=== PATIENT | male | born 1935 | race Caucasian/White ===

== ENCOUNTER 2021-11-16 13:43 | Inpatient (IN) ==
[2021-11-16 14:31] LABS: BILIRUBIN,URINE NEGATIVE (NEGATIVE); BLOOD/HEMOGLOBIN,URINE 1+ (NEGATIVE); GLUCOSE, URINE NEGATIVE (NEGATIVE); KETONES,URINE NEGATIVE (NEGATIVE); LEUKOCYTE ESTERASE ,URINE NEGATIVE (NEGATIVE); NITRITES,URINE NEGATIVE (NEGATIVE); PROTEIN,URINE 1+ (NEGATIVE); UROBILINOGEN,URINE NORMAL (NORMAL)
--- NOTE | 2021-11-16 14:37 | RAD ---
HISTORYSEPIS, SIGINFICANT WEAKNESS WITH DECREASED WEIGHT LOSS APPROX 3 WEEKS HEMRROIDECTOMY, APPENDIXSTUDYCHEST, 1 VIEWCOMPARISONNoneFINDINGSTrachea is midlineThere is normal heart size. There is mild elevation of the left diaphragm. There is no evidence of dominant alveolar radiopacity. 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 There is no pneumothorax or pleural effusions.IMPRESSIONFocal emphysematous changes at the right upper lobe and right midlung zone. No dominant alveolar radiopacities.Electronically signed by: Kirsten Medina (Nov 16, 2021 14:36:32)
[2021-11-16 14:44] LABS: APPEARANCE,URINE CLEAR (CLEAR); COLOR,URINE YELLOW (YELLOW)
[2021-11-16 14:45] LABS: BACTERIA,URINE TRACE /HPF (NEGATIVE); SQUAMOUS EPITHELIAL CELL,UR FEW /HPF (NEGATIVE)
[2021-11-16 14:56] LABS: BASOPHILS # (AUTO) 0.1 X10^3/uL (0.0-0.1); EOSINOPHILS # (AUTO) 0.1 x10^3/uL (0.0-0.2); EOSINOPHILS % (AUTO) 1.7 % (0.9-2.9); HEMATOCRIT 36.8 % (42.0-54.0); HEMOGLOBIN 12.7 g/dL (13.5-18.0); LYMPHOCYTES # (AUTO) 0.6 X10^3/uL (1.3-2.9); LYMPHOCYTES % (AUTO) 10.2 % (21.0-51.0); MEAN CORPUSCULAR HEMOGLOBIN 29.3 pg (27.0-34.0); MEAN CORPUSCULAR HGB CONC 34.6 g/dL (33.0-35.0); MEAN CORPUSCULAR VOLUME 84.8 fL (80.0-100.0); MEAN PLATELET VOLUME 6.7 fL (7.4-11.0); MONOCYTES # (AUTO) 0.4 x10^3/uL (0.3-0.8); MONOCYTES % (AUTO) 7.4 % (0.0-13.0); NEUTROPHILS # (AUTO) 4.5 x10^3/uL (2.2-4.8); NEUTROPHILS % (AUTO) 79.7 % (42.0-75.0); RED BLOOD COUNT 4.35 X10^6/uL (4.7-6.0); RED CELL DISTRIBUTION WIDTH 13.6 % (11.6-16.5); WHITE BLOOD COUNT 5.6 X10^3/uL (3.6-10.0)
[2021-11-16 15:13] LABS: CALCIUM 8.5 mg/dL (8.5-10.1); CARBON DIOXIDE 25.1 mmol/L (21-32); CKMB % 1.2 % (<4); COR CA(FOR HYPOALB) 9.3 mg/dL (8.5-10.1); CREATINE KINASE MB 1.5 ng/mL (0-4.0); CREATININE 2.49 mg/dL (0.70-1.30); MAGNESIUM 2.8 mg/dL (1.7-2.9); PHOSPHORUS 3.5 mg/dL (2.6-4.7); TOTAL PROTEIN 6.2 g/dL (6.4-8.2)
--- NOTE | 2021-11-16 15:44 | DR.DIZZY ---
HPI Time seen Time Seen by Provider: 11/16/21 14:17 PCP Primary Care Physician: ZAKI HPI Comment HPI Comment: An 86 y/o male presenting with weakness, poor appetite and weight loss since 3 weeks ago. He was started on outpt. Invanz for a UTI and has taken 6 daily of the planned 10 daily doses. Complaint Chief Complaint:: PATIENTS FAMILY STATES PATIENT HAS BEEN HAVING SIGINFICANT WEAKNESS WITH DECREASED WEIGHT LOSS. APPROX 3 WEEKS AGO PATIENT FELL AND WAS SEEN IN [facility] ED AND WAS DIAGNOSED WITH UTI. PATIENT WAS THEN SET UP WITH HAVING OUTPATIENT INFUSIONS OF INVANZ D/T THE BACTERIA GROWN OUT. PATIENT HAS HAD APPROX 6 DOSES OF MEDICATIONS. PATIENT'S FAMILY STATES PATIENT HAS LOST SO MUCH WEIGHT HE HAS WENT DOWN X2 PANTS SIZES IN 3 WEEKS. FAMILY ALOS STATES HE IS EXTREMELY WEAK. COVID-19 Coronavirus risk:travel/contact w/high risk person: No Has patient experienced Coronavirus symptoms: No Nurses Notes Reviewed Nurses Notes Review: Yes Source History Provided: Patient and Family Member Mode of Arrival Mode of Arrival: Wheelchair Timing Onset of Chief Complaint: 10/26/21 Came on: Gradually Duration Duration: Constant Location of Weakness Weakness Location: Generalized Context Onset: At rest and With light exertion History of: None Stroke Symptoms: None Modifying factors Worsens: Nothing Associated signs and symptoms Associated Signs and Symptoms: Normal PMH PMH Past Medical History: Yes Past Medical History Comment: BLADDER ISSUES Past Surgical History: Yes Surgical History: Appendectomy Past Surgical History Comment: HEMRROIDECTOMY Family History History of Family Medical Conditions: No Social History Does any household member use tobacco: No Alcohol Use: None Do you use any recreational Drugs:: No Lives With: Family Lives Where: Home Travel Risk Coronavirus risk:travel/contact w/high risk person: No Has patient experienced Coronavirus symptoms: No Infectious screening In the last 2 months have you had wt loss of >10#?: YES Have you had fever, night sweats or hemotysis?: No Have you traveled outside the country in the last 6 months?: No Isolation: Droplet ROS Review of Systems Constitutional: Malaise Eyes: No Symptoms Reported ENTM: No Symptoms Reported Respiratoy: No Symptoms Reported Cardiovascular: No Symptoms Reported Gastrointestinal/Abdominal: Other (poor appetite) Genitourinary: No Symptoms Reported Neurological: No Symptoms Reported Musculoskeletal: No Symptoms Reported Integumentary: No Symptoms Reported Hematologic/Lymphatic: No Symptoms Reported Endocrine: No Symptoms Reported Psychiatric: No Symptoms Reported PE Vital Signs Vitals: Temperature 98.0 F Pulse Rate 68 Respiratory Rate 18 Blood Pressure 121/58 O2 Sat by Pulse Oximetry 98 General Limitations: No Limitations General Appearance: Alert and In No Apparent Distress Head Head Exam: Normal Inspection, Atraumatic and Normocephalic Eyes Eye exam: Normal Appearance and EOMI ENT ENT Exam: Normal Exam, Normal Oropharynx, Normal External Ear Exam and Mucous Membranes Moist Neck Neck Exam: Normal Inspection, Full ROM and Trachea Midline Chest Chest Inspection: Normal Inspection and Symmetric Chest Wall Rise Respiratory Respiratory Exam: Normal Lung Sounds Bilat Cardiovascular Cardiovascular Exam: Regular Rate, Normal Rhythm, Normal Heart Sounds, +S1 and +S2 Abdominal Exam Abdominal Exam: Normal Inspection, Normal Bowel Sounds and Soft Rectal Rectal Exam: Deferred Extremeties Extremities Exam: Normal Inspection and Full ROM Back Back Exam: Normal Inspection and Full ROM Neurologic Neurological Exam: Alert Psychiatric Psychiatric Exam: Normal Affect and Normal Mood Skin Skin Exam: Intact COURSE Treatment Treatment: I had discussed hhis presentation and finding with the on-call provider (Dr. CORDOBA) who agrees with the recommendation for in-house placement. Reevaluation 1st: Improved Education/Counseling Education/Counseling: Patient, Family, Education and Counseling Educated On: Treatment, Diagnosis, Prognosis and Needs for Follow Up ROR Labs Reviewed Result Diagrams: 11/16/21 14:29 11/16/21 14:29 Laboratory: WBC 5.6 X10^3/uL (3.6-10.0) 11/16/21 14: RBC 4.35 X10^6/uL (4.7-6.0) L 11/16/21 14:29 Hgb 12.7 g/dL (13.5-18.0) L 11/16/21 14:29 Hct 36.8 % (42.0-54.0) L 11/16/21 14: MCV 84.8 fL (80.0-100.0) 11/16/21 14:29 MCH 29.3 pg (27.0-34.0) 11/16/21 14: MCHC 34.6 g/dL (33.0-35.0) 11/16/21 14: RDW 13.6 % (11.6-16.5) 11/16/21 14:29 Plt Count 334 X10^3/uL (150.0-450.0) 11/16/21 14:29 MPV 6.7 fL (7.4-11.0) L 11/16/21 14:29 Neut % (Auto) 79.7 % (42.0-75.0) H 11/16/21 14:29 Lymph % (Auto) 10.2 % (21.0-51.0) L 11/16/21 14:29 [place] % (Auto) 7.4 % (0.0-13.0) 11/16/21 14:29 Eos % (Auto) 1.7 % (0.9-2.9) 11/16/21 14:29 Baso % (Auto) 1.0 % (0.2-1.0) 11/16/21 14:29 Neut # (Auto) 4.5 x10^3/uL (2.2-4.8) 11/16/21 14:29 Lymph # (Auto) 0.6 X10^3/uL (1.3-2.9) L 11/16/21 14:29 [place] # (Auto) 0.4 x10^3/uL (0.3-0.8) 11/16/21 14:29 Eos # (Auto) 0.1 x10^3/uL (0.0-0.2) 11/16/21 14:29 Baso # (Auto) 0.1 X10^3/uL (0.0-0.1) 11/16/21 14:29 Absolute Nucleated RBC 0.0 /100WBC 11/16/21 14:29 PT 13.7 SECONDS (11.8-14.3) 11/16/21 14:29 INR Target Range - 11/16/21 14:29 INR 1.10 (0.8-1.3) 11/16/21 14:29 APTT 26.5 SECONDS (22.9-36.5) 11/16/21 14:29 PTT Comment - 11/16/21 14:29 Sodium 148 mmol/L (136-145) H 11/16/21 14:29 Corrected Sodium 148 mmol/L (136-145) H 11/16/21 14:29 Potassium 4.6 mmol/L (3.5-5.1) 11/16/21 14:29 Chloride 114 mmol/L (98-107) H 11/16/21 14:29 Carbon Dioxide 25.1 mmol/L (21-32) 11/16/21 14:29 BUN 41 mg/dL (7-18) H 11/16/21 14:29 Creatinine 2.49 mg/dL (0.70-1.30) H 11/16/21 14:29 Est GFR (MDRD) Af Amer 32 (>60) L 11/16/21 14:29 Est GFR (MDRD) Non-Af 26 (>60) L 11/16/21 14:29 Glucose 115 mg/dL (65-99) H 11/16/21 14:29 Lactic Acid 1.0 mmol/L (0.4-2.0) 11/16/21 14:29 Calcium 8.5 mg/dL (8.5-10.1) 11/16/21 14:29 Corrected Calcium 9.3 mg/dL (8.5-10.1) 11/16/21 14:29 Phosphorus 3.5 mg/dL (2.6-4.7) 11/16/21 14:29 Magnesium 2.8 mg/dL (1.7-2.9) 11/16/21 14:29 Total Bilirubin 0.60 mg/dL (0.2-1.0) 11/16/21 14:29 AST 18 Units/L (15-37) 11/16/21 14:29 ALT 11 Units/L (12-78) L 11/16/21 14:29 Alkaline Phosphatase 95 Units/L (46-116) 11/16/21 14:29 Creatine Kinase 124 Units/L (39-308) 11/16/21 14:29 CK-MB (CK-2) 1.5 ng/mL (0-4.0) 11/16/21 14:29 CK/CKMB % Calc 1.2 % (<4) 11/16/21 14:29 Troponin I High Sens 35.6 ng/L (4.0-60.0) 11/16/21 14:29 Total Protein 6.2 g/dL (6.4-8.2) L 11/16/21 14:29 Albumin 3.0 g/dL (3.4-5.0) L 11/16/21 14:29 Globulin 3.2 g/dL (2.5-4.5) 11/16/21 14:29 Albumin/Globulin Ratio 0.9 Ratio (1.1-2.1) L 11/16/21 14:29 Amylase 73 Units/L (25-115) 11/16/21 14:29 Lipase 150 Units/L (73-393) 11/16/21 14:29 Specimen Type Clean catch urine 11/16/21 14:05 Urine Color Yellow (YELLOW) 11/16/21 14:05 Urine Appearance Clear (CLEAR) 11/16/21 14:05 Urine pH 6.0 (5.0 - 8.0) 11/16/21 14:05 Ur Specific [place] 1.020 (1.000-1.030) 11/16/21 14:05 Urine Protein 1+ (NEGATIVE) 11/16/21 14:05 Urine Glucose (UA) Negative (NEGATIVE) 11/16/21 14:05 Urine Ketones Negative (NEGATIVE) 11/16/21 14:05 Urine Occult Blood 1+ (NEGATIVE) 11/16/21 14:05 Urine Nitrite Negative (NEGATIVE) 11/16/21 14:05 Urine Bilirubin Negative (NEGATIVE) 11/16/21 14:05 Urine Urobilinogen Normal (NORMAL) 11/16/21 14:05 Ur Leukocyte Esterase Negative (NEGATIVE) 11/16/21 14:05 Urine RBC 3-5 /HPF (0-3) A 11/16/21 14:05 Urine WBC 0-2 /HPF (0-5) 11/16/21 14:05 Ur Squamous Epith Cells Few /HPF (NEGATIVE) 11/16/21 14:05 Urine Bacteria Trace /HPF (NEGATIVE) 11/16/21 14:05 Ur Culture Indicated? No/not indicated 11/16/21 14:05 SARS CoV-2 RNA Rapid KANA Positive (NEGATIVE) A 11/16/21 18:38 Opioid Opioid Risk Tool Age ([place] box if 16-45): No History of Preadolescent Sexual Abuse: No Total: 0 Total Score Risk Category: Low Risk Copyright: [facility] predicting aberrant behaviors Diagnosis Discharge Problem: Dehydration, Adult failure to thrive, COVID-19 ADDITIONAL NOTES Additional Notes Additional Notes: [id number]: [id number] : 1935Sex: MLocation: ER Order Number(s): [id number](s):CHEST, 1 VIEW Ordering Physician: DIANE RUBIO Primary Care: Nathaniel Rizvi Service Date: 11/16/21 Service Time: 1408 HISTORY SEPIS, SIGINFICANT WEAKNESS WITH DECREASED WEIGHT LOSS APPROX 3 WEEKS HEMRROIDECTOMY, APPENDIX STUDY CHEST, 1 VIEW COMPARISON None FINDINGS Trachea is midline There is normal heart size. There is mild elevation of the left diaphragm. There is no evidence of dominant alveolar radiopacity. 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 There is no pneumothorax or pleural effusions. IMPRESSION Focal emphysematous changes at the right upper lobe and right midlung zone. No dominant alveolar radiopacities. Electronically signed by: Kirsten Medina (Nov 16, 2021 14:36:32) Report Electronically signed: 11/16/21 [id number] CC: Diane Rubio
[2021-11-16] MEDS ORDERED: NS 1/2 1,000 ML IV 1,000 ML IV ONE (17:58)
[2021-11-16] MEDS: NS 1/2 1,000 ML IV 1,000 ML IV SCH (18:04)
[2021-11-16] MEDS ORDERED: ROCEPHIN VIAL 1 GRAM 1 G in NS 100 ML IV + SPIKE MINIBAG* 100 ML IV SCH (19:24)
[2021-11-16] MEDS: BROVANA IN SCH (21:10)
[2021-11-16] MEDS: PULMICORT NEB TX 0.5 MG NEB SCH (21:10)
[2021-11-16] MEDS: ASCORBIC ACID INJ MULTI-DOSE VIAL 1,500 MG in NS 100 ML IV 100 ML IV SCH (22:31)
[2021-11-16] MEDS: LOVENOX INJ 30 MG SYR SC SCH (22:33)
[2021-11-16] MEDS: ZINC SULFATE PO SCH (22:33)
[2021-11-16] MEDS: PEPCID TAB 40 MG PO SCH (22:34)
[2021-11-16] MEDS: VIBRAMYCIN PO SCH (22:34)
[2021-11-16] MEDS: SOLU-Medrol 40 MG VIAL IVP SCH (22:34)
[2021-11-17] MEDS: NS 1/2 1,000 ML IV 1,000 ML IV SCH (02:28)
[2021-11-17] MEDS: ASCORBIC ACID INJ MULTI-DOSE VIAL 1,500 MG in NS 100 ML IV 100 ML IV SCH (02:28)
[2021-11-17] MEDS: SOLU-Medrol 40 MG VIAL IVP SCH ×3 (05:11→21:34)
[2021-11-17] MEDS: MEGACE ORAL SUSP 400 MG/10 ML PO SCH ×2 (06:05→17:20)
[2021-11-17 06:30] LABS: ALBUMIN 2.8 g/dL (3.4-5.0); CALCIUM 8.6 mg/dL (8.5-10.1); CARBON DIOXIDE 19.5 mmol/L (21-32); COR CA(FOR HYPOALB) 9.6 mg/dL (8.5-10.1); CREATININE 2.09 mg/dL (0.70-1.30)
[2021-11-17] MEDS: LOVENOX INJ 30 MG SYR SC SCH ×2 (08:41→21:34)
[2021-11-17] MEDS: ZINC SULFATE PO SCH ×2 (08:42→21:35)
[2021-11-17] MEDS: VIBRAMYCIN PO SCH ×2 (08:42→21:34)
[2021-11-17] MEDS: TRICOR TAB 160 MG PO SCH (08:42)
[2021-11-17] MEDS: ROCEPHIN 1 GRAM IV PREMIX 1 G/50 ML IV.SOLN. IV SCH (08:42)
[2021-11-17] MEDS: VITAMIN C PO SCH ×2 (08:42→21:34)
[2021-11-17] MEDS: PULMICORT NEB TX 0.5 MG NEB SCH ×2 (08:47→21:20)
[2021-11-17] MEDS: BROVANA IN SCH ×2 (08:47→21:20)
[2021-11-17] MEDS ORDERED: D5 1/2 NS 1,000 ML 1,000 ML IV SCH (09:00)
[2021-11-17] MEDS ORDERED: VITAMIN D (1.25MG) PO SCH (09:00)
[2021-11-17] MEDS: FLOMAX PO SCH (11:47)
--- NOTE | 2021-11-17 19:06 | DR.H&P ---
H&P History & Physical for Day of: H&P Date: 11/16/21 Chief Complaint Chief Complaint: Weakness/ Adult Failure to thrive Allergies Allergies Allergy/AdvReac Type Severity Reaction Status Date / Time No Known Drug Allergies Allergy Verified 11/16/21 13:44 History of Present Illness History of Present Illness: This is a 86yo white male with a 3 week history of weakness and not eating well. He was diagnosed 3 weeks ago with a UTI and was being treated with Invanz for a MDR infection. UA is now clear. Workup reveals he has dehydration. He was subsequently admitted for IV hydration. Past Surgical History Surgical History: Appendectomy Family History Family Medical History: Cancer Social History Does patient currently use any type of tobacco product: Yes Have you used tobacco products in the last 12 months: Yes Type of Tobacco Use: Cigars Does any household member use tobacco: No Alcohol Use: None Drug Use: None Medications Home Medications: No Known Drug Allergies Allergy (Verified 11/16/21 13:44) CONTINUE taking the following medications tamsulosin [Flomax] 0.4 mg PO DAILY 11/17/21 [History] Labs Result Diagrams: 11/16/21 14:29 11/17/21 04:41 Labs: Laboratory WBC 5.6 X10^3/uL (3.6-10.0) 11/16/21 14: RBC 4.35 X10^6/uL (4.7-6.0) L 11/16/21 14:29 Hgb 12.7 g/dL (13.5-18.0) L 11/16/21 14: Hct 36.8 % (42.0-54.0) L 11/16/21 14: MCV 84.8 fL (80.0-100.0) 11/16/21 14: MCH 29.3 pg (27.0-34.0) 11/16/21 14: MCHC 34.6 g/dL (33.0-35.0) 11/16/21 14: RDW 13.6 % (11.6-16.5) 11/16/21 14: Plt Count 334 X10^3/uL (150.0-450.0) 11/16/21 14: MPV 6.7 fL (7.4-11.0) L 11/16/21 14:29 Neut % (Auto) 79.7 % (42.0-75.0) H 11/16/21 14: Lymph % (Auto) 10.2 % (21.0-51.0) L 11/16/21 14: [place] % (Auto) 7.4 % (0.0-13.0) 11/16/21 14: Eos % (Auto) 1.7 % (0.9-2.9) 11/16/21 14: Baso % (Auto) 1.0 % (0.2-1.0) 11/16/21 14: Neut # (Auto) 4.5 x10^3/uL (2.2-4.8) 11/16/21 14: Lymph # (Auto) 0.6 X10^3/uL (1.3-2.9) L 11/16/21 14: [place] # (Auto) 0.4 x10^3/uL (0.3-0.8) 11/16/21 14: Eos # (Auto) 0.1 x10^3/uL (0.0-0.2) 11/16/21 14: Baso # (Auto) 0.1 X10^3/uL (0.0-0.1) 11/16/21 14: Absolute Nucleated RBC 0.0 /100WBC 11/16/21 14: PT 13.7 SECONDS (11.8-14.3) 11/16/21 14:29 INR Target Range - 11/16/21 14:29 INR 1.10 (0.8-1.3) 11/16/21 14: APTT 26.5 SECONDS (22.9-36.5) 11/16/21 14:29 PTT Comment - 11/16/21 14:29 Sodium 146 mmol/L (136-145) H 11/17/21 04:41 Corrected Sodium 148 mmol/L (136-145) H 11/17/21 04:41 Potassium 4.3 mmol/L (3.5-5.1) 11/17/21 04:41 Chloride 113 mmol/L (98-107) H 11/17/21 04:41 Carbon Dioxide 19.5 mmol/L (21-32) L 11/17/21 04:41 BUN 38 mg/dL (7-18) H 11/17/21 04:41 Creatinine 2.09 mg/dL (0.70-1.30) H 11/17/21 04:41 Est GFR (MDRD) Af Amer 39 (>60) L 11/17/21 04:41 Est GFR (MDRD) Non-Af 32 (>60) L 11/17/21 04:41 Glucose 164 mg/dL (65-99) H 11/17/21 04:41 Lactic Acid 1.0 mmol/L (0.4-2.0) 11/16/21 14:29 Calcium 8.6 mg/dL (8.5-10.1) 11/17/21 04:41 Corrected Calcium 9.6 mg/dL (8.5-10.1) 11/17/21 04:41 Phosphorus 3.5 mg/dL (2.6-4.7) 11/16/21 14:29 Magnesium 2.8 mg/dL (1.7-2.9) 11/16/21 14:29 Total Bilirubin 0.60 mg/dL (0.2-1.0) 11/17/21 04:41 AST 21 Units/L (15-37) 11/17/21 04:41 ALT 11 Units/L (12-78) L 11/17/21 04:41 Alkaline Phosphatase 97 Units/L (46-116) 11/17/21 04:41 Creatine Kinase 124 Units/L (39-308) 11/16/21 14:29 CK-MB (CK-2) 1.5 ng/mL (0-4.0) 11/16/21 14:29 CK/CKMB % Calc 1.2 % (<4) 11/16/21 14:29 Troponin I High Sens 35.6 ng/L (4.0-60.0) 11/16/21 14:29 Total Protein 6.0 g/dL (6.4-8.2) L 11/17/21 04:41 Albumin 2.8 g/dL (3.4-5.0) L 11/17/21 04:41 Globulin 3.2 g/dL (2.5-4.5) 11/17/21 04:41 Albumin/Globulin Ratio 0.9 Ratio (1.1-2.1) L 11/17/21 04:41 Amylase 73 Units/L (25-115) 11/16/21 14:29 Lipase 150 Units/L (73-393) 11/16/21 14:29 Specimen Type Clean catch urine 11/16/21 14:05 Urine Color Yellow (YELLOW) 11/16/21 14:05 Urine Appearance Clear (CLEAR) 11/16/21 14:05 Urine pH 6.0 (5.0 - 8.0) 11/16/21 14:05 Ur Specific [place] 1.020 (1.000-1.030) 11/16/21 14:05 Urine Protein 1+ (NEGATIVE) 11/16/21 14:05 Urine Glucose (UA) Negative (NEGATIVE) 11/16/21 14:05 Urine Ketones Negative (NEGATIVE) 11/16/21 14:05 Urine Occult Blood 1+ (NEGATIVE) 11/16/21 14:05 Urine Nitrite Negative (NEGATIVE) 11/16/21 14:05 Urine Bilirubin Negative (NEGATIVE) 11/16/21 14:05 Urine Urobilinogen Normal (NORMAL) 11/16/21 14:05 Ur Leukocyte Esterase Negative (NEGATIVE) 11/16/21 14:05 Urine RBC 3-5 /HPF (0-3) A 11/16/21 14:05 Urine WBC 0-2 /HPF (0-5) 11/16/21 14:05 Ur Squamous Epith Cells Few /HPF (NEGATIVE) 11/16/21 14:05 Urine Bacteria Trace /HPF (NEGATIVE) 11/16/21 14:05 Ur Culture Indicated? No/not indicated 11/16/21 14:05 SARS CoV-2 RNA Rapid KANA Positive (NEGATIVE) A 11/16/21 18:38 Review of Systems Constitutional: Weakness Eyes: No Symptoms Reported ENT: No Symptoms Reported Respiratory: No Symptoms Reported Cardiovascular: No Symptoms Reported Gastrointestinal: No Symptoms Reported Genitourinary: No Symptoms Reported Musculoskeletal: No Symptoms Reported Skin: No Symptoms Reported Neurological: Weakness Physical Exam Vital Signs: Temperature 98.0 F Pulse Rate 84 Respiratory Rate 17 Blood Pressure 127/62 O2 Sat by Pulse Oximetry 96 Oriented: Normal Eyes: Normal Ear: Normal Nose: Normal Throat: Normal Respiratory: Clear Throughout Cardiovascular: Normal : Normal Auscultation: Bowel Sounds: Normal Palpation: Normal Tenderness: Normal Skin: Normal Musculoskeletal: Normal Psychiatric: Normal Mood Description: Calm Affect: Normal Speech Pattern: Clear and Appropriate Assessment/Plan (1) Dehydration: Status: Acute Plan: IVF hydration/ recheck CMP in am. (2) Adult failure to thrive: Status: Acute Plan: Monitor for now. Review H&P Reviewed: Yes Patient was examined?: Yes
--- NOTE | 2021-11-17 19:09 | PCM.PROG ---
Progress Note Progress Note for Day of Date of Exam: 11/17/21 Subjective Subjective: Patient is alert this am. Feels a little better since on IVF. Sodium is up at 146. Will change IVF to D51/2NS from NS. Cr is down to 2.09. Will continue IVF and repeat CMP in am. Past Medical Family Social History Past Med/Fam/Surg Hx: No changes since H&P Allergies: Allergies No Known Drug Allergies Allergy (Verified 11/16/21 13:44) Review of Systems ROS: No change since H&P Vital Signs and I&O's Vital Signs: Temperature 98.0 F Pulse Rate 84 Respiratory Rate 17 Blood Pressure 127/62 O2 Sat by Pulse Oximetry 96 Intake and Output: Intake & Output 11/15/21 11/16/21 11/17/21 11/18/21 11:59 11:59 11:59 11:59 Intake Total 1605 / 1605 1208 / 1208 Output Total 375 / 375 100 / 100 Balance 1230 / 1230 1108 / 1108 Physical Exam Oriented: Normal Eyes: Normal Ear: Normal Nose: Normal Throat: Normal Respiratory: Normal Cardiovascular: Normal : Normal Auscultation: Bowel Sounds: Normal Palpation: Normal Tenderness: Normal Skin: Normal Musculoskeletal: Normal Psychiatric: Normal Mood Description: Calm Affect: Normal Speech Pattern: Clear and Appropriate Laboratory and Diagnostics Result Diagrams: 11/16/21 14:29 11/17/21 04:41 Labs: Laboratory WBC 5.6 X10^3/uL (3.6-10.0) 11/16/21 14:29 RBC 4.35 X10^6/uL (4.7-6.0) L 11/16/21 14:29 Hgb 12.7 g/dL (13.5-18.0) L 11/16/21 14:29 Hct 36.8 % (42.0-54.0) L 11/16/21 14:29 MCV 84.8 fL (80.0-100.0) 11/16/21 14:29 MCH 29.3 pg (27.0-34.0) 11/16/21 14: MCHC 34.6 g/dL (33.0-35.0) 11/16/21 14: RDW 13.6 % (11.6-16.5) 11/16/21 14:29 Plt Count 334 X10^3/uL (150.0-450.0) 11/16/21 14:29 MPV 6.7 fL (7.4-11.0) L 11/16/21 14:29 Neut % (Auto) 79.7 % (42.0-75.0) H 11/16/21 14:29 Lymph % (Auto) 10.2 % (21.0-51.0) L 11/16/21 14:29 [place] % (Auto) 7.4 % (0.0-13.0) 11/16/21 14:29 Eos % (Auto) 1.7 % (0.9-2.9) 11/16/21 14:29 Baso % (Auto) 1.0 % (0.2-1.0) 11/16/21 14:29 Neut # (Auto) 4.5 x10^3/uL (2.2-4.8) 11/16/21 14:29 Lymph # (Auto) 0.6 X10^3/uL (1.3-2.9) L 11/16/21 14:29 [place] # (Auto) 0.4 x10^3/uL (0.3-0.8) 11/16/21 14:29 Eos # (Auto) 0.1 x10^3/uL (0.0-0.2) 11/16/21 14:29 Baso # (Auto) 0.1 X10^3/uL (0.0-0.1) 11/16/21 14: Absolute Nucleated RBC 0.0 /100WBC 11/16/21 14:29 PT 13.7 SECONDS (11.8-14.3) 11/16/21 14:29 INR Target Range - 11/16/21 14:29 INR 1.10 (0.8-1.3) 11/16/21 14:29 APTT 26.5 SECONDS (22.9-36.5) 11/16/21 14:29 PTT Comment - 11/16/21 14:29 Sodium 146 mmol/L (136-145) H 11/17/21 04:41 Corrected Sodium 148 mmol/L (136-145) H 11/17/21 04:41 Potassium 4.3 mmol/L (3.5-5.1) 11/17/21 04:41 Chloride 113 mmol/L (98-107) H 11/17/21 04:41 Carbon Dioxide 19.5 mmol/L (21-32) L 11/17/21 04:41 BUN 38 mg/dL (7-18) H 11/17/21 04:41 Creatinine 2.09 mg/dL (0.70-1.30) H 11/17/21 04:41 Est GFR (MDRD) Af Amer 39 (>60) L 11/17/21 04:41 Est GFR (MDRD) Non-Af 32 (>60) L 11/17/21 04:41 Glucose 164 mg/dL (65-99) H 11/17/21 04:41 Lactic Acid 1.0 mmol/L (0.4-2.0) 11/16/21 14:29 Calcium 8.6 mg/dL (8.5-10.1) 11/17/21 04:41 Corrected Calcium 9.6 mg/dL (8.5-10.1) 11/17/21 04:41 Phosphorus 3.5 mg/dL (2.6-4.7) 11/16/21 14:29 Magnesium 2.8 mg/dL (1.7-2.9) 11/16/21 14:29 Total Bilirubin 0.60 mg/dL (0.2-1.0) 11/17/21 04:41 AST 21 Units/L (15-37) 11/17/21 04:41 ALT 11 Units/L (12-78) L 11/17/21 04:41 Alkaline Phosphatase 97 Units/L (46-116) 11/17/21 04:41 Creatine Kinase 124 Units/L (39-308) 11/16/21 14:29 CK-MB (CK-2) 1.5 ng/mL (0-4.0) 11/16/21 14:29 CK/CKMB % Calc 1.2 % (<4) 11/16/21 14:29 Troponin I High Sens 35.6 ng/L (4.0-60.0) 11/16/21 14:29 Total Protein 6.0 g/dL (6.4-8.2) L 11/17/21 04:41 Albumin 2.8 g/dL (3.4-5.0) L 11/17/21 04:41 Globulin 3.2 g/dL (2.5-4.5) 11/17/21 04:41 Albumin/Globulin Ratio 0.9 Ratio (1.1-2.1) L 11/17/21 04:41 Amylase 73 Units/L (25-115) 11/16/21 14:29 Lipase 150 Units/L (73-393) 11/16/21 14:29 Specimen Type Clean catch urine 11/16/21 14:05 Urine Color Yellow (YELLOW) 11/16/21 14:05 Urine Appearance Clear (CLEAR) 11/16/21 14:05 Urine pH 6.0 (5.0 - 8.0) 11/16/21 14:05 Ur Specific [place] 1.020 (1.000-1.030) 11/16/21 14:05 Urine Protein 1+ (NEGATIVE) 11/16/21 14:05 Urine Glucose (UA) Negative (NEGATIVE) 11/16/21 14:05 Urine Ketones Negative (NEGATIVE) 11/16/21 14:05 Urine Occult Blood 1+ (NEGATIVE) 11/16/21 14:05 Urine Nitrite Negative (NEGATIVE) 11/16/21 14:05 Urine Bilirubin Negative (NEGATIVE) 11/16/21 14:05 Urine Urobilinogen Normal (NORMAL) 11/16/21 14:05 Ur Leukocyte Esterase Negative (NEGATIVE) 11/16/21 14:05 Urine RBC 3-5 /HPF (0-3) A 11/16/21 14:05 Urine WBC 0-2 /HPF (0-5) 11/16/21 14:05 Ur Squamous Epith Cells Few /HPF (NEGATIVE) 11/16/21 14:05 Urine Bacteria Trace /HPF (NEGATIVE) 11/16/21 14:05 Ur Culture Indicated? No/not indicated 11/16/21 14:05 SARS CoV-2 RNA Rapid KANA Positive (NEGATIVE) A 11/16/21 18:38 Plan (1) Dehydration: Status: Acute Plan: IVF hydration/ recheck CMP in am. (2) Adult failure to thrive: Status: Acute Plan: Monitor for now.
[2021-11-17] MEDS: COLACE CAP 100 MG PO SCH (21:33)
[2021-11-17] MEDS: PEPCID TAB 40 MG PO SCH (21:35)
[2021-11-18] MEDS: SOLU-Medrol 40 MG VIAL IVP SCH ×3 (05:52→22:16)
[2021-11-18] MEDS: MEGACE ORAL SUSP 400 MG/10 ML PO SCH ×2 (05:52→16:09)
[2021-11-18 05:53] LABS: BASOPHILS % (AUTO) 0.1 % (0.2-1.0); HEMATOCRIT 33.4 % (42.0-54.0); HEMOGLOBIN 11.5 g/dL (13.5-18.0); LYMPHOCYTES # (AUTO) 0.4 X10^3/uL (1.3-2.9); LYMPHOCYTES % (AUTO) 2.8 % (21.0-51.0); MEAN CORPUSCULAR HGB CONC 34.3 g/dL (33.0-35.0); MEAN CORPUSCULAR VOLUME 84.8 fL (80.0-100.0); MEAN PLATELET VOLUME 7.3 fL (7.4-11.0); MONOCYTES # (AUTO) 0.5 x10^3/uL (0.3-0.8); NEUTROPHILS # (AUTO) 14.8 x10^3/uL (2.2-4.8); NEUTROPHILS % (AUTO) 94.1 % (42.0-75.0); RED BLOOD COUNT 3.94 X10^6/uL (4.7-6.0); RED CELL DISTRIBUTION WIDTH 13.4 % (11.6-16.5); WHITE BLOOD COUNT 15.8 X10^3/uL (3.6-10.0)
[2021-11-18 06:01] LABS: ALBUMIN 2.8 g/dL (3.4-5.0); CALCIUM 8.2 mg/dL (8.5-10.1); CARBON DIOXIDE 19.9 mmol/L (21-32); COR CA(FOR HYPOALB) 9.2 mg/dL (8.5-10.1); CREATININE 2.43 mg/dL (0.70-1.30); TOTAL PROTEIN 5.7 g/dL (6.4-8.2)
[2021-11-18 06:58] LABS: BAND NEUTROPHILS % 8 % (0-10); PLATELET MORPHOLOGY COMMENT NORMAL (NORMAL)
[2021-11-18] MEDS: ROCEPHIN 1 GRAM IV PREMIX 1 G/50 ML IV.SOLN. IV SCH (08:19)
[2021-11-18] MEDS: FLOMAX PO SCH (08:19)
[2021-11-18] MEDS: LOVENOX INJ 30 MG SYR SC SCH ×2 (08:19→20:42)
[2021-11-18] MEDS: VITAMIN A PO SCH (08:20)
[2021-11-18] MEDS: VITAMIN C PO SCH ×2 (08:20→20:41)
[2021-11-18] MEDS: VIBRAMYCIN PO SCH (08:20)
[2021-11-18] MEDS: ZINC SULFATE PO SCH ×2 (08:20→20:40)
[2021-11-18] MEDS: TRICOR TAB 160 MG PO SCH (08:20)
[2021-11-18] MEDS ORDERED: INVanz INJ 1 GRAM VIAL 1 G in NS 100 ML IV + SPIKE MINIBAG* 100 ML IV SCH (09:00)
[2021-11-18] MEDS: BROVANA IN SCH ×2 (09:26→21:20)
[2021-11-18] MEDS: PULMICORT NEB TX 0.5 MG NEB SCH ×2 (09:26→21:20)
[2021-11-18] MEDS ORDERED: NS 1/2 1,000 ML IV 1,000 ML IV ONE ×3 (09:50→22:12)
[2021-11-18] MEDS: NS 1/2 1,000 ML IV 1,000 ML IV SCH ×3 (09:53→22:17)
[2021-11-18] MEDS: INVanz INJ 1 GRAM VIAL IVP SCH (09:53)
--- NOTE | 2021-11-18 10:35 | RAD ---
HISTORYCOVID. WEAKNESSSTUDYCHEST x-ray, 1 VIEWCOMPARISONX-ray 11/16/2021FINDINGSThe trachea is midline. The cardiac silhouette is unremarkable .Lungs appear clear. Persistent COPD changes. No pneumothorax or pleural effusion is seen.No acute bony abnormality is seen.IMPRESSIONNo evidence of pneumonia.Electronically signed by: Jason Martinez (Nov 18, 2021 10:35:28)
[2021-11-18] MEDS: NICOTINE PATCH TD SCH (11:18)
[2021-11-18 13:20] LABS: BILIRUBIN,URINE NEGATIVE (NEGATIVE); BLOOD/HEMOGLOBIN,URINE 1+ (NEGATIVE); GLUCOSE, URINE NEGATIVE (NEGATIVE); KETONES,URINE NEGATIVE (NEGATIVE); LEUKOCYTE ESTERASE ,URINE NEGATIVE (NEGATIVE); NITRITES,URINE NEGATIVE (NEGATIVE); PROTEIN,URINE 1+ (NEGATIVE); UROBILINOGEN,URINE NORMAL (NORMAL)
[2021-11-18 13:30] LABS: APPEARANCE,URINE CLEAR (CLEAR); BACTERIA,URINE NEGATIVE /HPF (NEGATIVE); COLOR,URINE YELLOW (YELLOW); SQUAMOUS EPITHELIAL CELL,UR FEW /HPF (NEGATIVE)
--- NOTE | 2021-11-18 19:05 | PCM.PROG ---
Progress Note Progress Note for Day of Date of Exam: 11/18/21 Subjective Subjective: No complaints this am. Cr has increased since yesterday as well as WBC count. 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 I'm increasing his IVF rate to 150 ml/hr. Repeat cmp/cbc in am. Past Medical Family Social History Past Med/Fam/Surg Hx: No changes since H&P Allergies: Allergies No Known Drug Allergies Allergy (Verified 11/16/21 13:44) Review of Systems ROS: No change since H&P Vital Signs and I&O's Vital Signs: Temperature 98.4 F Pulse Rate 86 Respiratory Rate 28 Blood Pressure 160/69 O2 Sat by Pulse Oximetry 94 Intake and Output: Intake & Output 11/16/21 11/17/21 11/18/21 11/19/21 11:59 11:59 11:59 11:59 Intake Total 1605 / 1605 2098 / 2098 1385 / 1385 Output Total 375 / 375 100 / 100 400 / 400 Balance 1230 / 1230 1997 / 1997 985 / 985 Physical Exam Oriented: Normal Eyes: Normal Ear: Normal Nose: Normal Throat: Normal Respiratory: Normal Cardiovascular: Normal : Normal Auscultation: Bowel Sounds: Normal Tenderness: Normal Skin: Normal Musculoskeletal: Normal Psychiatric: Normal Mood Description: Calm Affect: Normal Speech Pattern: Clear and Appropriate Laboratory and Diagnostics Result Diagrams: 11/18/21 05:25 11/18/21 05:25 Labs: 11/16/21 14:35 Blood Blood Culture - Preliminary 11/16/21 14:29 Blood Blood Culture - Preliminary Laboratory WBC 15.8 X10^3/uL (3.6-10.0) H D 11/18/21 05:25 RBC 3.94 X10^6/uL (4.7-6.0) L 11/18/21 05:25 Hgb 11.5 g/dL (13.5-18.0) L 11/18/21 05:25 Hct 33.4 % (42.0-54.0) L 11/18/21 05:25 MCV 84.8 fL (80.0-100.0) 11/18/21 05:25 MCH 29.0 pg (27.0-34.0) 11/18/21 05:25 MCHC 34.3 g/dL (33.0-35.0) 11/18/21 05:25 RDW 13.4 % (11.6-16.5) 11/18/21 05:25 Plt Count 313 X10^3/uL (150.0-450.0) 11/18/21 05:25 Plt Count Comment Adequate (ADEQUATE) 11/18/21 05:25 MPV 7.3 fL (7.4-11.0) L 11/18/21 05:25 Neut % (Auto) 94.1 % (42.0-75.0) H 11/18/21 05:25 Lymph % (Auto) 2.8 % (21.0-51.0) L 11/18/21 05:25 [place] % (Auto) 3.0 % (0.0-13.0) 11/18/21 05:25 Eos % (Auto) 0.0 % (0.9-2.9) L 11/18/21 05:25 Baso % (Auto) 0.1 % (0.2-1.0) L 11/18/21 05:25 Neut # (Auto) 14.8 x10^3/uL (2.2-4.8) H 11/18/21 05:25 Lymph # (Auto) 0.4 X10^3/uL (1.3-2.9) L 11/18/21 05:25 [place] # (Auto) 0.5 x10^3/uL (0.3-0.8) 11/18/21 05:25 Eos # (Auto) 0.0 x10^3/uL (0.0-0.2) 11/18/21 05:25 Baso # (Auto) 0.0 X10^3/uL (0.0-0.1) 11/18/21 05:25 Absolute Nucleated RBC 0.0 /100WBC 11/18/21 05:25 Total Counted 100 11/18/21 05:25 Neutrophils % (Manual) 88 % (39-76) H 11/18/21 05:25 Band Neutrophils % 8 % (0-10) 11/18/21 05:25 Lymphocytes % (Manual) 2 % (13-43) L 11/18/21 05:25 Monocytes % (Manual) 2 % (4-9) L 11/18/21 05:25 Plt Morphology Comment Normal (NORMAL) 11/18/21 05:25 RBC Morphology Normal (NORMAL) 11/18/21 05:25 PT 13.7 SECONDS (11.8-14.3) 11/16/21 14:29 INR Target Range - 11/16/21 14: INR 1.10 (0.8-1.3) 11/16/21 14:29 APTT 26.5 SECONDS (22.9-36.5) 11/16/21 14:29 PTT Comment - 11/16/21 14:29 Sodium 143 mmol/L (136-145) 11/18/21 05:25 Corrected Sodium 144 mmol/L (136-145) 11/18/21 05:25 Potassium 3.7 mmol/L (3.5-5.1) 11/18/21 05:25 Chloride 111 mmol/L (98-107) H 11/18/21 05:25 Carbon Dioxide 19.9 mmol/L (21-32) L 11/18/21 05:25 BUN 43 mg/dL (7-18) H 11/18/21 05:25 Creatinine 2.43 mg/dL (0.70-1.30) H 11/18/21 05:25 Est GFR (MDRD) Af Amer 33 (>60) L 11/18/21 05:25 Est GFR (MDRD) Non-Af 27 (>60) L 11/18/21 05:25 Glucose 147 mg/dL (65-99) H 11/18/21 05:25 Lactic Acid 1.0 mmol/L (0.4-2.0) 11/16/21 14:29 Calcium 8.2 mg/dL (8.5-10.1) L 11/18/21 05:25 Corrected Calcium 9.2 mg/dL (8.5-10.1) 11/18/21 05:25 Phosphorus 3.5 mg/dL (2.6-4.7) 11/16/21 14:29 Magnesium 2.8 mg/dL (1.7-2.9) 11/16/21 14:29 Total Bilirubin 0.60 mg/dL (0.2-1.0) 11/18/21 05:25 AST 22 Units/L (15-37) 11/18/21 05:25 ALT 10 Units/L (12-78) L 11/18/21 05:25 Alkaline Phosphatase 85 Units/L (46-116) 11/18/21 05:25 Creatine Kinase 124 Units/L (39-308) 11/16/21 14:29 CK-MB (CK-2) 1.5 ng/mL (0-4.0) 11/16/21 14:29 CK/CKMB % Calc 1.2 % (<4) 11/16/21 14:29 Troponin I High Sens 35.6 ng/L (4.0-60.0) 11/16/21 14:29 Total Protein 5.7 g/dL (6.4-8.2) L 11/18/21 05:25 Albumin 2.8 g/dL (3.4-5.0) L 11/18/21 05:25 Globulin 2.9 g/dL (2.5-4.5) 11/18/21 05:25 Albumin/Globulin Ratio 1.0 Ratio (1.1-2.1) L 11/18/21 05:25 Amylase 73 Units/L (25-115) 11/16/21 14:29 Lipase 150 Units/L (73-393) 11/16/21 14:29 Specimen Type Clean catch urine 11/18/21 13:00 Urine Color Yellow (YELLOW) 11/18/21 13:00 Urine Appearance Clear (CLEAR) 11/18/21 13:00 Urine pH 5.0 (5.0 - 8.0) 11/18/21 13:00 Ur Specific [place] 1.010 (1.000-1.030) 11/18/21 13:00 Urine Protein 1+ (NEGATIVE) 11/18/21 13:00 Urine Glucose (UA) Negative (NEGATIVE) 11/18/21 13:00 Urine Ketones Negative (NEGATIVE) 11/18/21 13:00 Urine Occult Blood 1+ (NEGATIVE) 11/18/21 13:00 Urine Nitrite Negative (NEGATIVE) 11/18/21 13:00 Urine Bilirubin Negative (NEGATIVE) 11/18/21 13:00 Urine Urobilinogen Normal (NORMAL) 11/18/21 13:00 Ur Leukocyte Esterase Negative (NEGATIVE) 11/18/21 13:00 Urine RBC 3-5 /HPF (0-3) A 11/18/21 13:00 Urine WBC 0-2 /HPF (0-5) 11/18/21 13:00 Ur Squamous Epith Cells Few /HPF (NEGATIVE) 11/18/21 13:00 Urine Bacteria Negative /HPF (NEGATIVE) 11/18/21 13:00 Ur Culture Indicated? No/not indicated 11/18/21 13:00 SARS CoV-2 RNA Rapid KANA Positive (NEGATIVE) A 11/16/21 18:38 Radiology Reviewed: Yes Plan (1) Dehydration: Status: Acute Plan: IVF hydration/ recheck CMP in am. (2) Adult failure to thrive: Status: Acute Plan: Monitor for now.
[2021-11-18] MEDS: COLACE CAP 100 MG PO SCH (20:41)
[2021-11-18] MEDS: PEPCID TAB 40 MG PO SCH (20:41)
[2021-11-18] MEDS ORDERED: RESTORIL CAP 15 MG PO PRN (22:42)
[2021-11-19] MEDS: NS 1/2 1,000 ML IV 1,000 ML IV SCH ×4 (01:12→22:25)
[2021-11-19 04:54] LABS: BASOPHILS % (AUTO) 0.1 % (0.2-1.0); HEMATOCRIT 31.1 % (42.0-54.0); HEMOGLOBIN 10.8 g/dL (13.5-18.0); LYMPHOCYTES # (AUTO) 0.5 X10^3/uL (1.3-2.9); LYMPHOCYTES % (AUTO) 3.7 % (21.0-51.0); MEAN CORPUSCULAR HEMOGLOBIN 29.3 pg (27.0-34.0); MEAN CORPUSCULAR HGB CONC 34.8 g/dL (33.0-35.0); MEAN CORPUSCULAR VOLUME 84.1 fL (80.0-100.0); MEAN PLATELET VOLUME 7.4 fL (7.4-11.0); MONOCYTES # (AUTO) 0.3 x10^3/uL (0.3-0.8); MONOCYTES % (AUTO) 2.1 % (0.0-13.0); NEUTROPHILS # (AUTO) 12.7 x10^3/uL (2.2-4.8); NEUTROPHILS % (AUTO) 94.1 % (42.0-75.0); RED BLOOD COUNT 3.69 X10^6/uL (4.7-6.0); RED CELL DISTRIBUTION WIDTH 13.6 % (11.6-16.5); WHITE BLOOD COUNT 13.5 X10^3/uL (3.6-10.0)
[2021-11-19 05:09] LABS: ALBUMIN 2.8 g/dL (3.4-5.0); CALCIUM 7.9 mg/dL (8.5-10.1); COR CA(FOR HYPOALB) 8.9 mg/dL (8.5-10.1); CREATININE 2.3 mg/dL (0.70-1.30); TOTAL PROTEIN 5.6 g/dL (6.4-8.2)
[2021-11-19 05:12] LABS: BAND NEUTROPHILS % 1 % (0-10); OVALOCYTES SLIGHT; PLATELET MORPHOLOGY COMMENT NORMAL (NORMAL); POIKILOCYTOSIS SLIGHT
--- NOTE | 2021-11-19 05:46 | RAD ---
PROCEDURE: Chest X-ray 1 View .HISTORY: COVID .TECHNIQUE: AP view .COMPARISON: 11/18/2021.TECHNICAL QUALITY: Satisfactory .FINDINGS:Unremarkable cardio mediastinal silhouette and normal central vascularity.No pulmonary consolidation, pleural fluid, masses, or pneumothorax.IMPRESSION:No active cardiopulmonary disease.Electronically signed by: Ajay Whaley (Nov 19, 2021 05:45:47)
[2021-11-19] MEDS: MEGACE ORAL SUSP 400 MG/10 ML PO SCH (05:52)
[2021-11-19] MEDS: SOLU-Medrol 40 MG VIAL IVP SCH (05:52)
[2021-11-19] MEDS ORDERED: NS 1/2 1,000 ML IV 1,000 ML IV ONE ×3 (08:00→22:21)
[2021-11-19] MEDS: FLOMAX PO SCH (08:22)
[2021-11-19] MEDS: LOVENOX INJ 30 MG SYR SC SCH ×2 (08:22→21:16)
[2021-11-19] MEDS: INVanz INJ 1 GRAM VIAL IVP SCH (08:22)
[2021-11-19] MEDS: NICOTINE PATCH TD SCH (08:23)
[2021-11-19] MEDS: ZINC SULFATE PO SCH ×2 (08:24→21:16)
[2021-11-19] MEDS: VITAMIN C PO SCH ×2 (08:24→21:16)
[2021-11-19] MEDS: VITAMIN A PO SCH (08:24)
[2021-11-19] MEDS: BROVANA IN SCH ×2 (08:55→21:20)
[2021-11-19] MEDS: PULMICORT NEB TX 0.5 MG NEB SCH ×2 (08:56→21:20)
[2021-11-19] MEDS ORDERED: LR 1,000 ML IV 1,000 ML IV ONE (11:38)
[2021-11-19] MEDS ORDERED: VALIUM PO PRN (19:41)
[2021-11-19] MEDS: VALIUM INJ IM PRN (20:16)
[2021-11-19] MEDS: COLACE CAP 100 MG PO SCH (21:16)
[2021-11-19] MEDS: PEPCID TAB 40 MG PO SCH (21:16)
[2021-11-20] MEDS: NS 1/2 1,000 ML IV 1,000 ML IV SCH ×4 (02:17→18:00)
[2021-11-20] MEDS: VALIUM INJ IM PRN ×2 (03:15→18:15)
[2021-11-20 05:19] LABS: BASOPHILS % (AUTO) 0.1 % (0.2-1.0); HEMATOCRIT 27.5 % (42.0-54.0); HEMOGLOBIN 9.5 g/dL (13.5-18.0); LYMPHOCYTES # (AUTO) 0.5 X10^3/uL (1.3-2.9); LYMPHOCYTES % (AUTO) 4.3 % (21.0-51.0); MEAN CORPUSCULAR HEMOGLOBIN 29.3 pg (27.0-34.0); MEAN CORPUSCULAR HGB CONC 34.6 g/dL (33.0-35.0); MEAN CORPUSCULAR VOLUME 84.8 fL (80.0-100.0); MEAN PLATELET VOLUME 7.8 fL (7.4-11.0); MONOCYTES # (AUTO) 0.9 x10^3/uL (0.3-0.8); MONOCYTES % (AUTO) 8.3 % (0.0-13.0); NEUTROPHILS # (AUTO) 9.8 x10^3/uL (2.2-4.8); NEUTROPHILS % (AUTO) 87.3 % (42.0-75.0); RED BLOOD COUNT 3.25 X10^6/uL (4.7-6.0); RED CELL DISTRIBUTION WIDTH 13.8 % (11.6-16.5); WHITE BLOOD COUNT 11.3 X10^3/uL (3.6-10.0)
[2021-11-20] MEDS ORDERED: NS 1/2 1,000 ML IV 1,000 ML IV ONE ×3 (05:25→16:53)
[2021-11-20 05:28] LABS: ALANINE AMINOTRANSFERASE 14 Units/L (12-78); ALBUMIN 2.4 g/dL (3.4-5.0); ALKALINE PHOSPHATASE 67 Units/L (46-116); ASPARTATE AMINO TRANSFERASE 33 Units/L (15-37); BLOOD UREA NITROGEN 42 mg/dL (7-18); CALCIUM 7.7 mg/dL (8.5-10.1); CARBON DIOXIDE 22.5 mmol/L (21-32); CREATININE 1.98 mg/dL (0.70-1.30); SODIUM 146 mmol/L (136-145); TOTAL PROTEIN 4.7 g/dL (6.4-8.2); eGFR NON BLACK RACES 34 (>60)
[2021-11-20 05:39] LABS: CHLORIDE 116 mmol/L (98-107)
[2021-11-20] MEDS: FLOMAX PO SCH (08:03)
[2021-11-20] MEDS: ZINC SULFATE PO SCH ×2 (08:04→21:36)
[2021-11-20] MEDS: INVanz INJ 1 GRAM VIAL IVP SCH (08:04)
[2021-11-20] MEDS: NICOTINE PATCH TD SCH (08:04)
[2021-11-20] MEDS: VITAMIN A PO SCH (08:04)
[2021-11-20] MEDS: LOVENOX INJ 30 MG SYR SC SCH ×2 (08:05→21:35)
[2021-11-20] MEDS: VITAMIN C PO SCH ×2 (08:08→21:36)
[2021-11-20] MEDS: BROVANA IN SCH ×2 (08:40→21:11)
[2021-11-20] MEDS: PULMICORT NEB TX 0.5 MG NEB SCH ×2 (08:40→21:10)
[2021-11-20] MEDS: COLACE CAP 100 MG PO SCH (21:35)
[2021-11-20] MEDS: PEPCID TAB 40 MG PO SCH (21:36)
[2021-11-21] MEDS ORDERED: NS 1/2 1,000 ML IV 1,000 ML IV ONE ×3 (01:11→16:18)
[2021-11-21] MEDS: NS 1/2 1,000 ML IV 1,000 ML IV SCH ×3 (01:32→16:16)
[2021-11-21 05:22] LABS: BASOPHILS % (AUTO) 0.5 % (0.2-1.0); EOSINOPHILS % (AUTO) 0.3 % (0.9-2.9); HEMATOCRIT 28.4 % (42.0-54.0); HEMOGLOBIN 9.9 g/dL (13.5-18.0); LYMPHOCYTES # (AUTO) 0.5 X10^3/uL (1.3-2.9); LYMPHOCYTES % (AUTO) 9.2 % (21.0-51.0); MEAN CORPUSCULAR HEMOGLOBIN 29.4 pg (27.0-34.0); MEAN CORPUSCULAR HGB CONC 34.8 g/dL (33.0-35.0); MEAN CORPUSCULAR VOLUME 84.4 fL (80.0-100.0); MEAN PLATELET VOLUME 7.2 fL (7.4-11.0); MONOCYTES # (AUTO) 0.5 x10^3/uL (0.3-0.8); NEUTROPHILS # (AUTO) 4.7 x10^3/uL (2.2-4.8); RED BLOOD COUNT 3.36 X10^6/uL (4.7-6.0); RED CELL DISTRIBUTION WIDTH 13.8 % (11.6-16.5); WHITE BLOOD COUNT 5.8 X10^3/uL (3.6-10.0)
[2021-11-21 05:36] LABS: ALANINE AMINOTRANSFERASE 14 Units/L (12-78); ALBUMIN 2.3 g/dL (3.4-5.0); ALKALINE PHOSPHATASE 63 Units/L (46-116); ASPARTATE AMINO TRANSFERASE 28 Units/L (15-37); BLOOD UREA NITROGEN 41 mg/dL (7-18); CALCIUM 7.2 mg/dL (8.5-10.1); CARBON DIOXIDE 19.3 mmol/L (21-32); CHLORIDE 114 mmol/L (98-107); COR CA(FOR HYPOALB) 8.6 mg/dL (8.5-10.1); CREATININE 1.85 mg/dL (0.70-1.30); SODIUM 143 mmol/L (136-145); TOTAL PROTEIN 4.5 g/dL (6.4-8.2); eGFR NON BLACK RACES 37 (>60)
[2021-11-21 06:03] LABS: PLATELET MORPHOLOGY COMMENT NORMAL (NORMAL)
[2021-11-21] MEDS: BROVANA IN SCH ×2 (08:00→20:21)
[2021-11-21] MEDS: PULMICORT NEB TX 0.5 MG NEB SCH ×2 (08:00→20:21)
--- NOTE | 2021-11-21 08:33 | PCM.PROG ---
Progress Note Progress Note for Day of Date of Exam: 11/21/21 Subjective Subjective: No complaints this am. Cr has improved as well as WBC count. 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 I spoke with patients family this am. He has been living with them. They report that they are unable to care for him now since he is non-ambulatory for 4 weeks now. They wish to place in the [facility] for a permanent placement. I spoke with case management and they will start working on placement there. Will continue IVF and Invanz. Past Medical Family Social History Past Med/Fam/Surg Hx: No changes since H&P Allergies: Allergies No Known Drug Allergies Allergy (Verified 11/16/21 13:44) Review of Systems ROS: No change since H&P Vital Signs and I&O's Vital Signs: Temperature 97.5 F Pulse Rate 60 Respiratory Rate 22 Blood Pressure 156/70 O2 Sat by Pulse Oximetry 100 Intake and Output: Intake & Output 11/18/21 11/19/21 11/20/21 11/21/21 11:59 11:59 11:59 11:59 Intake Total 2098 / 2098 3608 / 3608 4643 / 4643 3897 / 3897 Output Total 100 / 100 700 / 700 200 / 200 950 / 950 Balance 1997 2908 / 2908 4443 / 4443 2947 / 2947 Physical Exam Oriented: Normal Eyes: Normal Ear: Normal Nose: Normal Throat: Normal Respiratory: Normal Cardiovascular: Normal : Normal Auscultation: Bowel Sounds: Normal Tenderness: Normal Skin: Normal Musculoskeletal: Normal Psychiatric: Normal Mood Description: Calm Affect: Normal Speech Pattern: Clear and Appropriate Laboratory and Diagnostics Result Diagrams: 11/21/21 04:19 11/21/21 04:19 Labs: 11/18/21 13:00 Urine,Clean Catch Urine Culture - Preliminary 11/16/21 14:35 Blood Blood Culture - Preliminary 11/16/21 14:29 Blood Blood Culture - Preliminary Laboratory WBC 5.8 X10^3/uL (3.6-10.0) 11/21/21 04:19 RBC 3.36 X10^6/uL (4.7-6.0) L 11/21/21 04:19 Hgb 9.9 g/dL (13.5-18.0) L 11/21/21 04:19 Hct 28.4 % (42.0-54.0) L 11/21/21 04:19 MCV 84.4 fL (80.0-100.0) 11/21/21 04:19 MCH 29.4 pg (27.0-34.0) 11/21/21 04:19 MCHC 34.8 g/dL (33.0-35.0) 11/21/21 04:19 RDW 13.8 % (11.6-16.5) 11/21/21 04:19 Plt Count 61 X10^3/uL (150.0-450.0) L 11/21/21 04:19 Plt Count Comment Decreased (ADEQUATE) 11/21/21 04:19 MPV 7.2 fL (7.4-11.0) L 11/21/21 04:19 Neut % (Auto) 81.0 % (42.0-75.0) H 11/21/21 04:19 Lymph % (Auto) 9.2 % (21.0-51.0) L 11/21/21 04:19 [place] % (Auto) 9.0 % (0.0-13.0) 11/21/21 04:19 Eos % (Auto) 0.3 % (0.9-2.9) L 11/21/21 04:19 Baso % (Auto) 0.5 % (0.2-1.0) 11/21/21 04:19 Neut # (Auto) 4.7 x10^3/uL (2.2-4.8) 11/21/21 04:19 Lymph # (Auto) 0.5 X10^3/uL (1.3-2.9) L 11/21/21 04:19 [place] # (Auto) 0.5 x10^3/uL (0.3-0.8) 11/21/21 04:19 Eos # (Auto) 0.0 x10^3/uL (0.0-0.2) 11/21/21 04:19 Baso # (Auto) 0.0 X10^3/uL (0.0-0.1) 11/21/21 04:19 Absolute Nucleated RBC 0.0 /100WBC 11/21/21 04:19 Total Counted 100 11/21/21 04:19 Neutrophils % (Manual) 84 % (39-76) H 11/21/21 04:19 Band Neutrophils % 1 % (0-10) 11/19/21 04:05 Lymphocytes % (Manual) 11 % (13-43) L 11/21/21 04:19 Monocytes % (Manual) 5 % (4-9) 11/21/21 04:19 Plt Morphology Comment Normal (NORMAL) 11/21/21 04:19 RBC Morphology Normal (NORMAL) 11/21/21 04:19 Poikilocytosis Slight A 11/19/21 04:05 Ovalocytes Slight A 11/19/21 04:05 Acanthocytes (Spur) Present 11/19/21 04:05 PT 13.7 SECONDS (11.8-14.3) 11/16/21 14:29 INR Target Range - 11/16/21 14:29 INR 1.10 (0.8-1.3) 11/16/21 14:29 APTT 26.5 SECONDS (22.9-36.5) 11/16/21 14:29 PTT Comment - 11/16/21 14:29 Sodium 143 mmol/L (136-145) 11/21/21 04:19 Corrected Sodium TNP 11/21/21 04:19 Potassium 3.7 mmol/L (3.5-5.1) 11/21/21 04:19 Chloride 114 mmol/L (98-107) H 11/21/21 04:19 Carbon Dioxide 19.3 mmol/L (21-32) L 11/21/21 04:19 BUN 41 mg/dL (7-18) H 11/21/21 04:19 Creatinine 1.85 mg/dL (0.70-1.30) H 11/21/21 04:19 Est GFR (MDRD) Af Amer 45 (>60) L 11/21/21 04:19 Est GFR (MDRD) Non-Af 37 (>60) L 11/21/21 04:19 Glucose 76 mg/dL (65-99) 11/21/21 04:19 Lactic Acid 1.0 mmol/L (0.4-2.0) 11/16/21 14:29 Calcium 7.2 mg/dL (8.5-10.1) L 11/21/21 04:19 Corrected Calcium 8.6 mg/dL (8.5-10.1) 11/21/21 04:19 Phosphorus 3.5 mg/dL (2.6-4.7) 11/16/21 14:29 Magnesium 2.8 mg/dL (1.7-2.9) 11/16/21 14:29 Total Bilirubin 0.60 mg/dL (0.2-1.0) 11/21/21 04:19 AST 28 Units/L (15-37) 11/21/21 04:19 ALT 14 Units/L (12-78) 11/21/21 04:19 Alkaline Phosphatase 63 Units/L (46-116) 11/21/21 04:19 Creatine Kinase 124 Units/L (39-308) 11/16/21 14:29 CK-MB (CK-2) 1.5 ng/mL (0-4.0) 11/16/21 14: CK/CKMB % Calc 1.2 % (<4) 11/16/21 14:29 Troponin I High Sens 35.6 ng/L (4.0-60.0) 11/16/21 14:29 Total Protein 4.5 g/dL (6.4-8.2) L 11/21/21 04:19 Albumin 2.3 g/dL (3.4-5.0) L 11/21/21 04:19 Globulin 2.2 g/dL (2.5-4.5) L 11/21/21 04:19 Albumin/Globulin Ratio 1.0 Ratio (1.1-2.1) L 11/21/21 04:19 Amylase 73 Units/L (25-115) 11/16/21 14:29 Lipase 150 Units/L (73-393) 11/16/21 14:29 Specimen Type Clean catch urine 11/18/21 13:00 Urine Color Yellow (YELLOW) 11/18/21 13:00 Urine Appearance Clear (CLEAR) 11/18/21 13:00 Urine pH 5.0 (5.0 - 8.0) 11/18/21 13:00 Ur Specific [place] 1.010 (1.000-1.030) 11/18/21 13:00 Urine Protein 1+ (NEGATIVE) 11/18/21 13:00 Urine Glucose (UA) Negative (NEGATIVE) 11/18/21 13:00 Urine Ketones Negative (NEGATIVE) 11/18/21 13:00 Urine Occult Blood 1+ (NEGATIVE) 11/18/21 13:00 Urine Nitrite Negative (NEGATIVE) 11/18/21 13:00 Urine Bilirubin Negative (NEGATIVE) 11/18/21 13:00 Urine Urobilinogen Normal (NORMAL) 11/18/21 13:00 Ur Leukocyte Esterase Negative (NEGATIVE) 11/18/21 13:00 Urine RBC 3-5 /HPF (0-3) A 11/18/21 13:00 Urine WBC 0-2 /HPF (0-5) 11/18/21 13:00 Ur Squamous Epith Cells Few /HPF (NEGATIVE) 11/18/21 13:00 Urine Bacteria Negative /HPF (NEGATIVE) 11/18/21 13:00 Ur Culture Indicated? No/not indicated 11/18/21 13:00 SARS CoV-2 RNA Rapid KANA Positive (NEGATIVE) A 11/16/21 18:38 Plan (1) Dehydration: Status: Acute Plan: Decrease IVF to KVO (2) Adult failure to thrive: Status: Acute Plan: Start working on NH placement in [place], [place] (3) CKD (chronic kidney disease): Status: Acute Plan: Changing IVF to KVO
[2021-11-21] MEDS: FLOMAX PO SCH (09:03)
[2021-11-21] MEDS: NICOTINE PATCH TD SCH (09:04)
[2021-11-21] MEDS: VITAMIN C PO SCH ×2 (09:04→20:04)
[2021-11-21] MEDS: VITAMIN A PO SCH (09:04)
[2021-11-21] MEDS: ZINC SULFATE PO SCH ×2 (09:04→20:04)
[2021-11-21] MEDS: INVanz INJ 1 GRAM VIAL IVP SCH (09:04)
[2021-11-21] MEDS: VALIUM INJ IM PRN (20:04)
[2021-11-21] MEDS: COLACE CAP 100 MG PO SCH (20:04)
[2021-11-21] MEDS ORDERED: PEPCID TAB 20 MG PO SCH (21:00)
[2021-11-22 06:00] LABS: BASOPHILS % (AUTO) 0.3 % (0.2-1.0); EOSINOPHILS # (AUTO) 0.1 x10^3/uL (0.0-0.2); EOSINOPHILS % (AUTO) 1.5 % (0.9-2.9); HEMATOCRIT 27.6 % (42.0-54.0); HEMOGLOBIN 9.7 g/dL (13.5-18.0); LYMPHOCYTES # (AUTO) 0.6 X10^3/uL (1.3-2.9); LYMPHOCYTES % (AUTO) 9.3 % (21.0-51.0); MEAN CORPUSCULAR HEMOGLOBIN 29.9 pg (27.0-34.0); MEAN CORPUSCULAR HGB CONC 35.2 g/dL (33.0-35.0); MEAN CORPUSCULAR VOLUME 84.9 fL (80.0-100.0); MEAN PLATELET VOLUME 7.5 fL (7.4-11.0); MONOCYTES # (AUTO) 0.7 x10^3/uL (0.3-0.8); MONOCYTES % (AUTO) 10.6 % (0.0-13.0); NEUTROPHILS # (AUTO) 5.5 x10^3/uL (2.2-4.8); NEUTROPHILS % (AUTO) 78.3 % (42.0-75.0); RED BLOOD COUNT 3.25 X10^6/uL (4.7-6.0); RED CELL DISTRIBUTION WIDTH 14.1 % (11.6-16.5)
[2021-11-22 06:11] LABS: CALCIUM 7.5 mg/dL (8.5-10.1); CARBON DIOXIDE 20.8 mmol/L (21-32); COR CA(FOR HYPOALB) 9.1 mg/dL (8.5-10.1); CREATININE 2.01 mg/dL (0.70-1.30); TOTAL PROTEIN 4.3 g/dL (6.4-8.2)
[2021-11-22] MEDS: NS 1/2 1,000 ML IV 1,000 ML IV SCH ×2 (07:10→09:39)
[2021-11-22 07:54] VITALS: BMI 25.8
[2021-11-22] MEDS: BROVANA IN SCH (08:28)
[2021-11-22] MEDS: PULMICORT NEB TX 0.5 MG NEB SCH (08:28)
[2021-11-22] MEDS: INVanz INJ 1 GRAM VIAL IVP SCH (09:38)
[2021-11-22] MEDS: FLOMAX PO SCH (09:38)
[2021-11-22] MEDS: NICOTINE PATCH TD SCH (09:38)
[2021-11-22] MEDS: VITAMIN A PO SCH (09:39)
[2021-11-22] MEDS: VITAMIN C PO SCH (09:39)
[2021-11-22] MEDS: ZINC SULFATE PO SCH (09:39)
[2021-11-22 12:14] VITALS: BP 127/58
--- NOTE | 2021-12-14 14:18 | PCM.DCPLAN ---
DISCHARGE SUMMARY Admission Date Date of Admission: 11/16/21 Discharge Date Discharge Date: 11/22/21 Admission Diagnoses (1) Dehydration: Status: Acute (2) Adult failure to thrive: Status: Acute (3) CKD (chronic kidney disease): Status: Acute Discharge Diagnoses Discharge Diagnosis: 1. Adult Failure To Thrive 2. Dehydration 3. CKD Discharge Medications Discharge Medications: Home Medication List tamsulosin [Flomax] 0.4 mg PO DAILY 11/17/21 [History] budesonide [Pulmicort] 0.5 mg INHALATION BID #1 ml 11/22/21 [Rx] docusate sodium [Colace] 100 mg PO HS #30 cap 11/22/21 [Rx] famotidine [Pepcid] 20 mg PO QHS #30 tab 11/22/21 [Rx] metoprolol teran-hydrochlorothiaz 1 tab PO DAILY #30 tab 11/22/21 [Rx] tamsulosin [Flomax] 0.4 mg PO DAILY #30 cap 11/22/21 [Rx] Prescriptions: budesonide [Pulmicort] CRISTINA CORDOBA docusate sodium [Colace] ADALID,CRISTINA famotidine [Pepcid] CRISTINA CORDOBA metoprolol teran-hydrochlorothiaz ADALID,CRISTINA tamsulosin [Flomax] ADALID,CRISTINA Hospital Course Vital Signs: Temperature 97.9 F Pulse Rate 82 Respiratory Rate 17 Blood Pressure 127/58 O2 Sat by Pulse Oximetry 100 Latest Lab Results: Laboratory Last Values WBC 7.0 X10^3/uL (3.6-10.0) 11/22/21 05:32 RBC 3.25 X10^6/uL (4.7-6.0) L 11/22/21 05:32 Hgb 9.7 g/dL (13.5-18.0) L 11/22/21 05:32 Hct 27.6 % (42.0-54.0) L 11/22/21 05:32 MCV 84.9 fL (80.0-100.0) 11/22/21 05:32 MCH 29.9 pg (27.0-34.0) 11/22/21 05:32 MCHC 35.2 g/dL (33.0-35.0) H 11/22/21 05:32 RDW 14.1 % (11.6-16.5) 11/22/21 05:32 Plt Count 184 X10^3/uL (150.0-450.0) 11/22/21 05:32 Plt Count Comment Decreased (ADEQUATE) 11/21/21 04:19 MPV 7.5 fL (7.4-11.0) 11/22/21 05:32 Neut % (Auto) 78.3 % (42.0-75.0) H 11/22/21 05:32 Lymph % (Auto) 9.3 % (21.0-51.0) L 11/22/21 05:32 [place] % (Auto) 10.6 % (0.0-13.0) 11/22/21 05:32 Eos % (Auto) 1.5 % (0.9-2.9) 11/22/21 05:32 Baso % (Auto) 0.3 % (0.2-1.0) 11/22/21 05:32 Neut # (Auto) 5.5 x10^3/uL (2.2-4.8) H 11/22/21 05:32 Lymph # (Auto) 0.6 X10^3/uL (1.3-2.9) L 11/22/21 05:32 [place] # (Auto) 0.7 x10^3/uL (0.3-0.8) 11/22/21 05:32 Eos # (Auto) 0.1 x10^3/uL (0.0-0.2) 11/22/21 05:32 Baso # (Auto) 0.0 X10^3/uL (0.0-0.1) 11/22/21 05:32 Absolute Nucleated RBC 0.0 /100WBC 11/22/21 05:32 Total Counted 100 11/21/21 04:19 Neutrophils % (Manual) 84 % (39-76) H 11/21/21 04:19 Band Neutrophils % 1 % (0-10) 11/19/21 04:05 Lymphocytes % (Manual) 11 % (13-43) L 11/21/21 04:19 Monocytes % (Manual) 5 % (4-9) 11/21/21 04:19 Plt Morphology Comment Normal (NORMAL) 11/21/21 04:19 RBC Morphology Normal (NORMAL) 11/21/21 04:19 Poikilocytosis Slight A 11/19/21 04:05 Ovalocytes Slight A 11/19/21 04:05 Acanthocytes (Spur) Present 11/19/21 04:05 PT 13.7 SECONDS (11.8-14.3) 11/16/21 14:29 INR Target Range - 11/16/21 14: INR 1.10 (0.8-1.3) 11/16/21 14:29 APTT 26.5 SECONDS (22.9-36.5) 11/16/21 14:29 PTT Comment - 11/16/21 14:29 Sodium 142 mmol/L (136-145) 11/22/21 05:32 Corrected Sodium 142 mmol/L (136-145) 11/22/21 05:32 Potassium 3.6 mmol/L (3.5-5.1) 11/22/21 05:32 Chloride 114 mmol/L (98-107) H 11/22/21 05:32 Carbon Dioxide 20.8 mmol/L (21-32) L 11/22/21 05:32 BUN 38 mg/dL (7-18) H 11/22/21 05:32 Creatinine 2.01 mg/dL (0.70-1.30) H 11/22/21 05:32 Est GFR (MDRD) Af Amer 41 (>60) L 11/22/21 05:32 Est GFR (MDRD) Non-Af 34 (>60) L 11/22/21 05:32 Glucose 115 mg/dL (65-99) H 11/22/21 05:32 Lactic Acid 1.0 mmol/L (0.4-2.0) 11/16/21 14:29 Calcium 7.5 mg/dL (8.5-10.1) L 11/22/21 05:32 Corrected Calcium 9.1 mg/dL (8.5-10.1) 11/22/21 05:32 Phosphorus 3.5 mg/dL (2.6-4.7) 11/16/21 14:29 Magnesium 2.8 mg/dL (1.7-2.9) 11/16/21 14:29 Total Bilirubin 0.50 mg/dL (0.2-1.0) 11/22/21 05:32 AST 17 Units/L (15-37) 11/22/21 05:32 ALT 12 Units/L (12-78) 11/22/21 05:32 Alkaline Phosphatase 59 Units/L (46-116) 11/22/21 05:32 Creatine Kinase 124 Units/L (39-308) 11/16/21 14:29 CK-MB (CK-2) 1.5 ng/mL (0-4.0) 11/16/21 14:29 CK/CKMB % Calc 1.2 % (<4) 11/16/21 14:29 Troponin I High Sens 35.6 ng/L (4.0-60.0) 11/16/21 14:29 Total Protein 4.3 g/dL (6.4-8.2) L 11/22/21 05:32 Albumin 2.0 g/dL (3.4-5.0) L 11/22/21 05:32 Globulin 2.3 g/dL (2.5-4.5) L 11/22/21 05:32 Albumin/Globulin Ratio 0.9 Ratio (1.1-2.1) L 11/22/21 05:32 Amylase 73 Units/L (25-115) 11/16/21 14:29 Lipase 150 Units/L (73-393) 11/16/21 14:29 Specimen Type Clean catch urine 11/18/21 13:00 Urine Color Yellow (YELLOW) 11/18/21 13:00 Urine Appearance Clear (CLEAR) 11/18/21 13:00 Urine pH 5.0 (5.0 - 8.0) 11/18/21 13:00 Ur Specific [place] 1.010 (1.000-1.030) 11/18/21 13:00 Urine Protein 1+ (NEGATIVE) 11/18/21 13:00 Urine Glucose (UA) Negative (NEGATIVE) 11/18/21 13:00 Urine Ketones Negative (NEGATIVE) 11/18/21 13:00 Urine Occult Blood 1+ (NEGATIVE) 11/18/21 13:00 Urine Nitrite Negative (NEGATIVE) 11/18/21 13:00 Urine Bilirubin Negative (NEGATIVE) 11/18/21 13:00 Urine Urobilinogen Normal (NORMAL) 11/18/21 13:00 Ur Leukocyte Esterase Negative (NEGATIVE) 11/18/21 13:00 Urine RBC 3-5 /HPF (0-3) A 11/18/21 13:00 Urine WBC 0-2 /HPF (0-5) 11/18/21 13:00 Ur Squamous Epith Cells Few /HPF (NEGATIVE) 11/18/21 13:00 Urine Bacteria Negative /HPF (NEGATIVE) 11/18/21 13:00 Ur Culture Indicated? No/not indicated 11/18/21 13:00 SARS CoV-2 RNA Rapid KANA Positive (NEGATIVE) A 11/16/21 18:38 Hospital Course: This is a pleasant 86 year old white male who admitted for a three-week history of adult failure to thrive. He reports increase weakness and not eating well for the last 3 weeks. 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 Work appear in the [facility] Emergency Department reveals he has dehydration. A urinalysis was done which does not currently shows a urinary tract infection. At this time I did not elect to restart his IV Invanz. over the next two days is hydration status improved and his creatinine is coming down. He had developed over these next two days and increase white blood cell count. Because of this I restarted his IV Invanz. I discussed this case with his family who he had been staying with. They reported that they were not currently able to help take care of for him anymore since he is having so much trouble walking. They feel it would be in his best interest to go to a halfway at this time. I'm in agreement with the family at this time and of the next couple of days we arranged for him to go to [place], [place] to the halfway there. During his Hospital stay is also noted he does have some chronic kidney disease as well. He was discharged to the halfway in [place] in stable condition. He is to resume his regular on meds and discharged meds this time. Instructions Instructions: Dehydration, Adult, [id number] Symptoms of Coronavirus - CDC (11/29/2020) COVID-19 Frequently Asked Questions Prone Position Therapy When You've Been Fully Vaccinated: How to Protect Yourself and Others - CDC (02/17/2021) 10 Things You Can Do to Manage Your COVID-19 Symptoms at Home - CDC (04/07/2020) COVID-19 Frequently Asked Questions About COVID-19 Vaccination - CDC (02/01/2021) Dehydration, Elderly, [id number] Failure to Thrive, Adult, [id number] Forms: Excuse From Work or School Precautions for COVID19 [facility] Social Distancing
== END 2021-11-22 15:00 | DRG 641 ==
LOC: ICU 13:43 → ER 13:43 → ICU 20:10
PROVIDERS: ADMIT Family Medicine; ATTEND Family Medicine
DX: R62.7 Adult failure to thrive; E86.0 Dehydration; Z87.440 Personal history of urinary (tract) infections; R53.1 Weakness; Z86.16 Personal history of COVID-19